=== PATIENT | male | born 1980 | race African-American/Black ===

== ENCOUNTER 2017-06-26 13:50 | Emergency (ER) | payer SELFPAY ==
[2017-06-26] MEDS ORDERED: ONDANSETRON *ODT* 4 MG TABLET ONE (14:01)
[2017-06-26] MEDS ORDERED: SODIUM CHLORIDE 1,000 ML IV STA ×2 (14:09→15:09)
[2017-06-26] MEDS ORDERED: ONDANSETRON 4 MG TABLET PO ONE (14:09)
[2017-06-26] MEDS ORDERED: ONDANSETRON 4 MG/2 ML VIAL IVPUSH ONE (14:24)
[2017-06-26 14:32] VITALS: BP 151/97; PULSE 84; TEMP 99.1; BMI 29.8
[2017-06-26] MEDS ORDERED: ONDANSETRON 4 MG/2 ML VIAL ONE (14:42)
[2017-06-26 15:04] LABS: BASO % 0.5 % (0-2.0); EOS % 0.2 % (0-4.5); MCH 30.1 pg (25.7-33.7); MCHC 33.9 g/dl (32.0-35.9); MEAN CELL VOLUME 88.7 fl (80-96); MEAN PLT VOLUME 7.8 fl (7.5-11.1); NEUT % 83.6 % (42.8-82.8); PLATELET COUNT 323 K/MM3 (134-434); RDW 12.4 % (11.9-15.9); WHITE BLOOD COUNT 11.6 K/mm3 (4.0-10.0)
[2017-06-26] MEDS ORDERED: METOCLOPRAMIDE HCL INJECTION 10 MG/2 ML VIAL IVPB ONE (15:08)
--- NOTE | 2017-06-26 15:09 | PDOC ---
*Physical Exam - Vital Signs Last Vital Signs Temp Pulse Resp BP Pulse Ox 99.1 F 84 20 151/97 100 06/26/17 14:29 06/26/17 14:29 06/26/17 14:29 06/26/17 14:29 06/26/17 14:29 ED Treatment Course - LABORATORY CBC & Chemistry Diagram: 06/26/17 14:55 06/26/17 14:55 - Medications Given in the ED: ED Medications Discontinued Medications Generic Name Dose Route Start Last Admin Trade Name Freq PRN Reason Stop Dose Admin Sodium Chloride 1,000 mls @ 1,000 mls/hr 06/26/17 14:09 06/26/17 15:01 Normal Saline - IV 06/26/17 15:08 1,000 mls/hr ASDIR STA Administration Ondansetron HCl 4 mg 06/26/17 14:09 06/26/17 14:00 Zofran - PO 06/26/17 14:10 4 mg ONCE ONE Administration Ondansetron HCl 4 mg 06/26/17 14:24 06/26/17 15:01 Zofran Injection IVPUSH 06/26/17 14:25 4 mg ONCE ONE Administration Medical Decision Making - Medical Decision Making 06/26/17 15:09 Pt seen by the Advanced Practice Provider under my direct supervision Ancillary studies reviewed I agree with plan as outlined by the Advanced Practice Provider JAMES Romero
[2017-06-26] MEDS ORDERED: METOCLOPRAMIDE HCL INJECTION 10 MG/2 ML VIAL ONE (15:11)
[2017-06-26 15:22] LABS: ALBUMIN 4.4 g/dl (3.4-5.0); ANION GAP 12 (8-16); BILIRUBIN,TOTAL 0.8 mg/dL (0.2-1.0); CALCIUM 9.7 mg/dL (8.5-10.1); CO2 26 mmol/L (21-32); CREATININE 1.1 mg/dL (0.7-1.3); GLUCOSE,RANDOM 267 mg/dL (74-106); MAGNESIUM 1.8 mg/dL (1.8-2.4); SGOT/AST 15 U/L (15-37); SGPT/ALT 29 U/L (12-78); TOT PROT 7.9 g/dl (6.4-8.2)
[2017-06-26 15:23] LABS: ALK PHOS 95 U/L (45-117)
--- NOTE | 2017-06-26 15:30 | PDOC ---
History of Present Illness - General Chief Complaint: Nausea/Vomiting Stated Complaint: STOMACH PAIN/VOMITING Time Seen by Provider: 06/26/17 14:07 History Source: Patient Exam Limitations: No Limitations - History of Present Illness Travel History: No Initial Comments: 06/26/17 14:25 37-year-old male who presents the ED with complaints of nausea vomiting and mid abdominal cramping for the past 4 days. Patient states is also diabetic but denies change in medications states last BGM was 201. Patient also denies recent illness, recent travel, recent change in diet, recent sick contacts, fever, chills, cough, change in bowel pattern, change in urine pattern. Timing/Duration: reports: constant Quality: reports: moderate, cramping Abdominal Pain Onset Location: reports: periumbilical Pain Radiation: reports: no radiation Activities at Onset: reports: none Aggravating Factors: improves with: None Alleviating Factors: improves with: None Past History - Travel Traveled outside of the country in the last 30 days: No - Past Medical History Allergies/Adverse Reactions: Allergies Allergy/AdvReac Type Severity Reaction Status Date / Time No Known Allergies Allergy Verified 06/26/16 01:47 Home Medications: Ambulatory Orders Famotidine [Pepcid] 20 mg PO DAILY #20 tablet 06/26/16 Metformin HCl [Metformin HCl ER] 1,000 mg PO BID 06/26/16 Ondansetron [Zofran Odt -] 4 mg SL BID PRN #6 od.tablet 06/26/16 Diabetes: Yes - Suicide/Smoking/Psychosocial Hx Smoking History: Never smoked Have you smoked in the past 12 months: No Information on smoking cessation initiated: No Hx Alcohol Use: No Drug/Substance Use Hx: No Substance Use Type: None Patient Lives Alone: No Lives with/in: spouse/SO Review of Systems - Review of Systems Able to Perform ROS?: Yes Constitutional: Yes: Symptoms Reported, Weakness. No: Chills, Fever HEENTM: No: Symptoms Reported Respiratory: No: Symptoms reported Cardiac (ROS): No: Symptoms Reported ABD/GI: Yes: Nausea, Poor Appetite, Poor Fluid Intake, Abdominal cramping : No: Symptoms Reported Musculoskeletal: No: Symptoms Reported Integumentary: No: Symptoms Reported Neurological: No: Headache, Dizziness *Physical Exam - Vital Signs Last Vital Signs Temp Pulse Resp BP Pulse Ox 99.1 F 84 20 151/97 100 06/26/17 14:29 06/26/17 14:29 06/26/17 14:29 06/26/17 14:29 06/26/17 14:29 - Physical Exam General Appearance: Yes: Nourished, Appropriately Dressed. No: Apparent Distress HEENT: positive: EOMI, TMs Normal, Pharynx Normal. negative: Pale Conjunctivae Respiratory/Chest: positive: Lungs Clear, Normal Breath Sounds. negative: Respiratory Distress, Accessory Muscle Use Cardiovascular: positive: Regular Rhythm, Regular Rate. negative: Murmur Gastrointestinal/Abdominal: positive: Soft. negative: Tenderness Extremity: positive: Normal Capillary Refill. negative: Pedal Edema Integumentary: positive: Normal Color, Warm. negative: Moist Neurologic: positive: Motor Strength 5/5. negative: Normal Mood/Affect ED Treatment Course - LABORATORY CBC & Chemistry Diagram: 06/26/17 14:55 06/26/17 14:55 - ADDITIONAL ORDERS Additional order review: Laboratory Results 06/26/17 14:55 Sodium 139 Potassium 4.2 Chloride 101 D Carbon Dioxide 26 Anion Gap 12 BUN 10 D Creatinine 1.1 Creat Clearance w eGFR > 60 Random Glucose 267 H Calcium 9.7 Magnesium 1.8 Total Bilirubin 0.8 D AST 15 D ALT 29 Alkaline Phosphatase 95 Total Protein 7.9 Albumin 4.4 Lipase 105 06/26/17 14:55 RBC 4.87 MCV 88.7 MCHC 33.9 RDW 12.4 MPV 7.8 Neutrophils % 83.6 H Lymphocytes % 11.5 Monocytes % 4.2 Eosinophils % 0.2 Basophils % 0.5 - Medications Given in the ED: ED Medications Discontinued Medications Generic Name Dose Route Start Last Admin Trade Name Freq PRN Reason Stop Dose Admin Sodium Chloride 1,000 mls @ 1,000 mls/hr 06/26/17 14:09 06/26/17 15:01 Normal Saline - IV 06/26/17 15:08 1,000 mls/hr ASDIR STA Administration Metoclopramide HCl 10 mg 06/26/17 15:08 06/26/17 15:24 Reglan Injection - IVPB 06/26/17 15:09 10 mg ONCE ONE Administration Ondansetron HCl 4 mg 06/26/17 14:09 06/26/17 14:00 Zofran - PO 06/26/17 14:10 4 mg ONCE ONE Administration Ondansetron HCl 4 mg 06/26/17 14:24 06/26/17 15:01 Zofran Injection IVPUSH 06/26/17 14:25 4 mg ONCE ONE Administration Medical Decision Making - Medical Decision Making 06/26/17 15:52 Patient with nausea vomiting and periumbilical pain for the past 4 days. Patient with history of diabetes and was recently incarcerated and released a few weeks ago. Patient actively vomiting here in the ER with generalized abdominal tenderness on exam. Patient ordered for CBC, comp, lipase, mag, Zofran IV fluids, acetone and urine. 06/26/17 17:51 Patient states feeling better and given ice chips along with second bag of IV fluid. Patient will go home after his second bag is completed and given Reglan for discharge. 06/26/17 18:35 Laboratory Tests 06/26/17 06/26/17 06/26/17 14:55 14:55 14:55 WBC 11.6 H Hgb 14.6 D Hct 43.2 D Neutrophils % 83.6 H Sodium 139 Potassium 4.2 Chloride 101 D Anion Gap 12 Creatinine 1.1 Creat Clearance w eGFR > 60 Random Glucose 267 H Calcium 9.7 Magnesium 1.8 AST 15 D ALT 29 Alkaline Phosphatase 95 Total Protein 7.9 Lipase 105 Urine Glucose (UA) Urine Ketones Urine Nitrite Urine Bilirubin Acetone, Qual Negative 06/26/17 15:25 WBC Hgb Hct Neutrophils % Sodium Potassium Chloride Anion Gap Creatinine Creat Clearance w eGFR Random Glucose Calcium Magnesium AST ALT Alkaline Phosphatase Total Protein Lipase Urine Glucose (UA) 3+ H Urine Ketones 2+ H Urine Nitrite Negative Urine Bilirubin Negative Acetone, Qual Patient will be discharged home with Reglan with recommendations to follow bland diet and continue medications as previously prescribed. *DC/Admit/Observation/Transfer Diagnosis at time of Disposition: Nausea & vomiting Qualifiers: Vomiting type: bilious vomiting Qualified Code(s): R11.14 - Bilious vomiting - Discharge Dispostion Disposition: HOME Condition at time of disposition: Improved - Referrals - Patient Instructions Printed Discharge Instructions: DI for Vomiting -- Adult Additional Instructions: Please follow bland diet for the next 2 days and bananas, rice, and diet gingerale to diet. Please also take Reglan as needed for nausea. If symptoms continue or worsen please go to the nearest emergency room. otherwise follow-up with your primary care physician. - Post Discharge Activity
[2017-06-26 15:51] LABS: URINE APPEARANCE CLEAR; URINE BILIRUBIN NEGATIVE (NEGATIVE); URINE BLOOD NEGATIVE (NEGATIVE); URINE COLOR YELLOW; URINE GLUCOSE (UA) 3+ (NEGATIVE); URINE KETONE 2+ (NEGATIVE); URINE LEUK ESTERASE NEGATIVE (NEGATIVE); URINE NITRITE NEGATIVE (NEGATIVE); URINE PROTEIN NEGATIVE (NEGATIVE); URINE UROBILINOGEN 4.0 E.U/dl mg/dL (0.2-1.0)
[2017-06-26 20:28] LABS: URINE LEUK ESTERASE Negative (NEGATIVE)
== END 2017-06-26 18:56 | disposition home or self-care (01) ==
LOC: JER 13:50
PROC: 3E0337Z Introduction of Electrolytic and Water Balance Substance into Peripheral Vein, Percutaneous Approach (ICD-10-PCS; principal; 2017-06-26)
PROC: 3E033GC Introduction of Other Therapeutic Substance into Peripheral Vein, Percutaneous Approach (ICD-10-PCS; 2017-06-26)
PROC: 3E033GC Introduction of Other Therapeutic Substance into Peripheral Vein, Percutaneous Approach (ICD-10-PCS; 2017-06-26)
DX: R11.14 Bilious vomiting (principal); E11.9 Type 2 diabetes mellitus without complications; Z79.84 Long term (current) use of oral hypoglycemic drugs
CPT/HCPCS: 36415; 80053; 81003; 82009; 83690; 83735; 85025; 99282-25